=== PATIENT | female | born 1990 | race Caucasian/White ===

== ENCOUNTER 2020-08-23 21:38 | Emergency (ER) | payer OTHER ==
[~2020-08-23 21:38] MED LIST: CIPRO500 MG PO; COLACE100 MG PO; EFFEXOR XR75 MG PO; FEOSOL325 MG PO; FLAGYL500 MG PO; IBUPROFEN800 MG PO; PHENERGAN25 M1 PO; VITAMIN D PO
== END 2020-08-24 00:27 | disposition home or self-care (01) ==
LOC: FER 21:38
DX: G43.909 Migraine, unspecified, not intractable, without status migrainosus (principal)
CPT/HCPCS: J0780; J1170; J1200; J1885; J7030